=== PATIENT | male | born 1940 | race Caucasian/White ===

== ENCOUNTER 2018-04-16 22:57 | Inpatient (IN) | payer MEDICARE, OTHER ==
[~2018-04-16] VITALS: Ht 188 cm; Wt 107.1 kg
[2018-04-16 23:21] LABS: BASOPHILS ABSOLUTE AUTO 0.02 K/mm3 (0.00-0.23); BASOPHILS PERCENT AUTO 0 % (0-2); EOSINOPHILS ABSOLUTE AUTO 0.14 K/mm3 (0.00-0.68); EOSINOPHILS PERCENT AUTO 2 % (0-6); Hematocrit 33.8 % (37.0-53.0); Hemoglobin 9.1 g/dL (13.5-17.5); IMMATURE GRAN ABSOLUTE AUTO 0.07 K/mm3 (0.00-0.10); IMMATURE GRAN PERCENT AUTO 1 % (0-1); LYMPHOCYTES ABSOLUTE AUTO 0.91 K/mm3 (0.84-5.20); LYMPHOCYTES PERCENT AUTO 10 % (21-46); MONOCYTES ABSOLUTE AUTO 1.06 K/mm3 (0.16-1.47); MONOCYTES PERCENT AUTO 11 % (4-13); Mean Corpuscular HGB 21.4 pg (26.0-34.0); Mean Corpuscular HGB Conc 26.9 g/dL (31.5-36.5); Mean Corpuscular Volume 79 fL (80-100); Mean Platelet Volume 10.1 fL (9.1-12.4); NEUTROPHILS ABSOLUTE AUTO 7.34 K/mm3 (1.96-9.15); NEUTROPHILS PERCENT AUTO 77 % (41-73); Platelet Count 228 K/mm3 (150-400); RDW Coefficient Variation 21.8 % (11.7-14.2); RDW Standard Deviation 62.4 fL (35.1-46.3); Red Blood Cell Count 4.26 M/mm3 (4.30-5.90); White Blood Cell Count 9.54 K/mm3 (4.00-11.30)
[2018-04-16] MEDS ORDERED: Ipratr-Albuterol3 ML INH (23:25)
[2018-04-16] MEDS ORDERED: ALBU90OI INH (23:25)
[2018-04-16] MEDS ORDERED: DILT60 PO (23:27)
[2018-04-16] MEDS ORDERED: Metoprolol Tar100 MG PO (23:28)
[2018-04-16] MEDS ORDERED: TIOT18 INH (23:28)
[2018-04-16] MEDS ORDERED: FURO40 PO (23:28)
[2018-04-16] MEDS ORDERED: WARF5 PO (23:29)
[2018-04-16] MEDS ORDERED: WARF2.5 PO (23:29)
[2018-04-16 23:37] LABS: International Normalized Ratio 3.77; Prothrombin Time Results 40.9 Sec (9.7-11.5)
[2018-04-16 23:39] LABS: Alanine Aminotransfer (ALT/SGP 17 U/L (12-78); Albumin, Blood 2.5 g/dL (3.4-5.0); Albumin/Globulin Ratio 0.7 (0.8-1.8); Alk Phos 70 U/L (50-136); Anion Gap 5 mmol/L (6-16); Aspartate Aminotrans (AST/SGOT 20 U/L (12-37); Bilirubin, Total 0.3 mg/dL (0.1-1.0); Blood Urea Nitrogen 11 mg/dL (8-24); CO2, Blood 38 mmol/L (21-32); Calcium, Blood 7.8 mg/dL (8.5-10.1); Chloride, Blood 100 mmol/L (98-108); Globulin, Blood 3.8 g/dL (2.2-4.0); Glomerular Filtration Rate >60 (60-); Glucose, Blood 149 mg/dL (70-99); Sodium, Blood 143 mmol/L (136-145); Total Protein, Blood 6.3 g/dL (6.4-8.2)
[2018-04-17 02:27] LABS: PCO2 Arterial 56.9 mmHg (35-45); PO2 Arterial 61.2 mmHg (80-100); pH Blood Arterial 7.44 (7.35-7.45)
[2018-04-17 02:30] LABS: Source, Urine Clean Catch
[2018-04-17 02:49] LABS: Bilirubin, Urine Neg (Neg); Blood, Urine 3+ (Neg); Glucose Qualitative, Urine Neg (Neg); Ketones, Urine Neg (Neg); Leukocyte Esterase, Urine 3+ (Neg); Nitrite, Urine Neg (Neg); Protein, Urine 2+ (Neg); Urobilinogen, Urine NORM (Normal)
[2018-04-17 02:50] LABS: Appearance, Urine Cloudy (Clear); Color, Urine Yellow (P-Yellow)
[2018-04-17 03:02] LABS: U Amphetamine Screen DETECTED; U Barbituate Screen Not Detected; U Benzodiazapine Screen Not Detected; U Buprenorphine Screen Not Detected; U Cannabinoids Screen Not Detected; U Cocaine Screen Not Detected; U Methadone Screen Not Detected; U Methamphetamine Screen DETECTED; U Opiates Screen Not Detected; U Oxycodone Screen Not Detected; U Phencyclidine Screen Not Detected; U Propoxyphene Screen Not Detected
[2018-04-17 03:05] LABS: Bacteria Mod /hpf; Red Blood Cells, Urine 0-2 /hpf (0-2); Squamous Epithelial Cells Not Seen /hpf (Few); White Blood Cells, Urine TNTC /hpf (0-5); Yeast/Fungi Urine Mod /hpf
[2018-04-17 07:15] LABS: Hematocrit 31.3 % (37.0-53.0); Hemoglobin 8.4 g/dL (13.5-17.5); Mean Corpuscular HGB 21.2 pg (26.0-34.0); Mean Corpuscular HGB Conc 26.8 g/dL (31.5-36.5); Mean Corpuscular Volume 79 fL (80-100); Mean Platelet Volume 10.3 fL (9.1-12.4); Platelet Count 201 K/mm3 (150-400); RDW Coefficient Variation 21.9 % (11.7-14.2); RDW Standard Deviation 62.3 fL (35.1-46.3); Red Blood Cell Count 3.97 M/mm3 (4.30-5.90); White Blood Cell Count 9.11 K/mm3 (4.00-11.30)
[2018-04-17 07:31] LABS: Alanine Aminotransfer (ALT/SGP 16 U/L (12-78); Albumin, Blood 2.2 g/dL (3.4-5.0); Albumin/Globulin Ratio 0.6 (0.8-1.8); Alk Phos 65 U/L (50-136); Anion Gap 5 mmol/L (6-16); Aspartate Aminotrans (AST/SGOT 20 U/L (12-37); Bilirubin, Total 0.2 mg/dL (0.1-1.0); Blood Urea Nitrogen 10 mg/dL (8-24); Bun/Creatinine Ratio 10.9 (12.0-20.0); CO2, Blood 36 mmol/L (21-32); Calcium, Blood 7.7 mg/dL (8.5-10.1); Chloride, Blood 103 mmol/L (98-108); Creatinine, Blood 0.92 mg/dL (0.60-1.20); Globulin, Blood 3.4 g/dL (2.2-4.0); Glomerular Filtration Rate >60 (60-); Glucose, Blood 93 mg/dL (70-99); Potassium, Blood 3.3 mmol/L (3.5-5.5); Sodium, Blood 144 mmol/L (136-145); Total Protein, Blood 5.6 g/dL (6.4-8.2)
[2018-04-17 07:38] LABS: International Normalized Ratio 3.77; Prothrombin Time Results 40.9 Sec (9.7-11.5)
[2018-04-18 05:50] LABS: International Normalized Ratio 3.05; Prothrombin Time Results 32.8 Sec (9.7-11.5)
[2018-04-19 05:36] LABS: International Normalized Ratio 1.73; Prothrombin Time Results 18.3 Sec (9.7-11.5)
[2018-04-19] MEDS ORDERED: FLUC100 PO (10:07)
[2018-04-19] MEDS ORDERED: TAMS.4ER PO (10:08)
[2018-04-19] MEDS ORDERED: Pedi-Dri 100,0060 GM TOP (10:09)
== END 2018-04-19 12:16 | disposition home or self-care (01) | DRG 727 ==
LOC: ER 22:57 → MEDS 04-17 01:07 → ICUW 04-17 01:07 → MEDS 04-17 17:58 → ENPENDDIS 04-19 09:30 → MEDS 04-19 12:16
PROVIDERS: Emergency Medicine; Internal Medicine
DX: B37.49 Other urogenital candidiasis (principal); G93.40 Encephalopathy, unspecified; J96.11 Chronic respiratory failure with hypoxia; J44.9 Chronic obstructive pulmonary disease, unspecified; I48.2 Chronic atrial fibrillation; F15.10 Other stimulant abuse, uncomplicated; Z79.01 Long term (current) use of anticoagulants; E87.6 Hypokalemia; E86.0 Dehydration; R79.1 Abnormal coagulation profile
CPT/HCPCS: 36415; 36600; 70450; 70496; 70498; 71045; 80053; 81001; 82803; 83605; 83880; 84145; 85025; 85027; 85610; 87070; 87077; 87086; 87147; 87186; 87205; 93005; 93010; 93306; 94760; 94762; 96365; 97110; 97116; 97161; 99285; G8978; G8979; J0295; J1956; J2310; J2543; J3480; J7030; Q3014; Q9967